=== PATIENT | female | born 1940 | race Caucasian/White ===

== ENCOUNTER 2017-09-29 16:10 | Observation (INO) ==
[2017-09-29] MEDS ORDERED: 0.9 % Sodium Chloride 1,000 ML IVC ONE (17:28)
[2017-09-29] MEDS ORDERED: Piperacillin/Tazobactam 3.375 GM in 0.9 % Sodium Chloride Mini Bag 100 ML IVPB ONE (17:38)
[2017-09-29] MEDS ORDERED: Piperacillin/Tazobactam 3.375 GM in Water for inj. (sterile) 20 ML 20 ML IVP ONE (17:45)
--- NOTE | 2017-09-29 17:47 | Emergency Department Note ---
Disposition Clinical Impression: Diverticulitis, RIGO (acute kidney injury), Elevated troponin Sepsis Qualifiers: Sepsis type: sepsis due to unspecified organism Qualified Code(s): A41.9 - Sepsis, unspecified organism Disposition: Admitted As Inpatient Condition: Fair Time of Disposition: 21:16 General Adult HPI - General Chief complaint: ED Weakness Stated complaint: "my legs wont hold me up" Time Seen by Provider: 09/29/17 17:06 Source: patient Mode of arrival: ambulatory Limitations: no limitations Nursing Notes Reviewed: Yes Vital Signs Reviewed: Yes - History of Present Illness HPI Narrative: 77-year-old female with a history of COPD, on nocturnal oxygen 2 L, pacemaker, recent pneumonia treated with Levaquin presents for evaluation of generalized weakness. Patient states she has been generally weak is worse in the past 24 hours. States that she feels that her legs are weaker than her arms. The patient also notes fevers and a nonproductive cough. Patient denies any specific shortness of breath or chest pain. Patient does report some abdominal discomfort with intermittent diarrhea. Patient denies any urinary complaints. Patient states that she was evaluated for possible liver cancer at [facility] and is not undergoing any therapy. Patient states that she recently just completed her Levaquin. Patient also states that her daughter was diagnosed with the flu. Pain Scale: 5 - Related Data Home Medications Medication Instructions Recorded Confirmed Diltiazem HCl [Diltiazem ER] 120 mg PO DAILY 07/10/16 09/29/17 Polyethylene Glycol 3350 [MiraLAX] 17 gm PO DAILY PRN 07/10/16 09/29/17 Tolterodine Tartrate [Detrol] 1 mg PO DAILY PRN 07/10/16 09/29/17 Albuterol Sulfate [Proair Hfa] 2 puff IH Q4H PRN 09/29/17 09/29/17 Cyanocobalamin (B-12) [Vitamin B12] 1,000 mcg IM QWEEK 09/29/17 09/29/17 Omeprazole [PriLOSEC] 40 mg PO DAILY 09/29/17 09/29/17 Oxygen 2 l NS AD 09/29/17 09/29/17 predniSONE [PredniSONE] 40 mg PO DAILY 09/29/17 09/29/17 Allergies Allergy/AdvReac Type Severity Reaction Status Date / Time budesonide [From Symbicort] Allergy Shakiness Verified 09/29/17 16:49 Formoterol [From Symbicort] Allergy Shakiness Verified 09/29/17 16:49 simvastatin Allergy Cramping Verified 09/29/17 16:49 of the Muscles sulfamethoxazole Allergy Nausea Verified 09/29/17 16:49 [From Bactrim] trimethoprim [From Bactrim] Allergy Nausea Verified 09/29/17 16:49 All systems ED: reviewed and negative except as stated. Constitutional: Denies: fever Cardiovascular: Denies: chest pain Respiratory: Reports: cough. Denies: dyspnea Gastrointestinal: Reports: abdominal pain, diarrhea. Denies: nausea, vomiting Past Medical History - Past Medical History Source: patient Medical history: Reports: COPD, GERD, hyperlipidemia, other Surgical history: Reports: cholecystectomy, pacemaker Psychiatric history: Reports: no psych history - Social History Smoking Status: Former smoker Smokeless Tobacco Status: No Alcohol use: Reports: none Drug use: Reports: none Physical Exam - General Limitations: no limitations General appearance: alert, in no apparent distress, lethargic - Head Head exam: atraumatic, normocephalic, normal inspection - Eye Eye exam: Present: normal appearance, PERRL, EOMI - ENT ENT exam: normal exam, normal oropharynx, mucous membranes moist - Neck Neck exam: Present: normal inspection - Chest Chest inspection: Present: normal inspection, symmetric chest wall rise - Respiratory Respiratory exam: Present: accessory muscle use, other (Diminished right lower lungs). Absent: respiratory distress - Cardiovascular Cardiovascular exam: Present: normal rhythm, tachycardia. Absent: systolic murmur - Abdominal Exam Abdominal exam: Present: soft, Non-Tender. Absent: distention, guarding, rebound - Extremities Exam Extremities exam: Present: normal inspection. Absent: pedal edema - Expanded Lower Extremity Exam Neurovascular/Tendon exam: Present: normal capillary refill - Back Exam Back exam: Present: normal inspection - Neurological Exam Neurological exam: Present: alert, oriented X3, CN II-XII intact - Expanded Neurological Exam Patient oriented to: Present: person Speech: Present: fluid speech Cranial nerves: EOM function (II, III, IV, ): Normal, facial sensation (V): Normal, gag reflex (IX): Normal, spinal accessory function (XI): Normal, tongue deviation (XII): Normal Motor strength - LUE: 5/5 Motor strength - RUE: 5/5 Motor strength - LLE: 4/5 Motor strength - RLE: 4/5 Coma Scale Eye Opening: Spontaneous Coma Scale Motor Response: Obeys Commands Coma Scale Verbal Response: Oriented Coma Scale Total: 15 - Skin Skin exam: Present: warm, dry, intact, normal color Course Course Narrative: Patient seen and examined. Patient will get basic labs, treating for sources of infection. Patient will also get CT of the head and CT of the abdomen and pelvis. Chest x-ray. Concerns for possible respiratory etiology. Patient also get screening for influenza. IV fluid hydration. Disposition likely admission. - Reevaluation(s) Reevaluation #1: Patient's imaging studies reviewed shows she has acute uncomplicated rectosigmoid diverticulitis. Patient has been complaining of diarrhea symptoms. Will add fungal coverage to the patient's antibiotic regimen that was initiated early on. Time: 19:41 Vital Signs Temperature 101.0 F H 09/29/17 16:44 Pulse Rate 105 09/29/17 16:44 Respiratory Rate 24 09/29/17 16:44 Blood Pressure 90/60 09/29/17 16:44 O2 Sat by Pulse Oximetry 99 09/29/17 16:44 Temperature 98.4 F 09/29/17 23:18 Pulse Rate 62 09/29/17 21:40 Respiratory Rate 16 09/29/17 23:18 Blood Pressure 95/50 09/29/17 23:18 O2 Sat by Pulse Oximetry 99 09/29/17 21:40 Oxygen Delivery Oxygen Delivery Room Air Medical Decision Making - [facility] Narrative Medical decision making narrative: Patient presented with sirs criteria with tachycardia as well as borderline blood pressure with fever. Patient had a recent course of antibiotics and diagnosed with pneumonia. During the course the patient's evaluation she was screened for the source of infection. Patient negative flu swab. Chest x-ray did not show any significant focal infiltrate R the patient was covered initially with broad-spectrum antibiotics given the patient's initial presentation. Patient's also been complaining of abdominal pain and has been chronic over the past month with associated diarrhea. Patient was found to have acute uncomplicated sigmoid diverticulitis. Patient was requiring IV fluid resuscitation responded to fluids. Does have 2 peripheral IVs. Patient also developed an elevated troponin with no acute EKG changes. Patient is denying any chest pain. Patient was given an aspirin. Patient also developed acute kidney injury likely secondary to prerenal and volume status. Patient's family was updated on plan of care. Patient be admitted for sepsis secondary to diverticulitis. - Lab Data Lab results reviewed: Yes I reviewed the patient's lab results. Result diagrams: 09/29/17 17:46 09/29/17 17:28 Lab Results 09/29/17 09/29/17 09/29/17 Range/Units 17:28 17:46 17:46 WBC 6.4 (4.3-11.1) K/mcL RBC 4.79 (3.82-4.97) M/mcL Hgb 14.5 (11.5-15.4) g/dL Hct 43.7 (35.3-44.9) % MCV 91.2 (83.0-100.0) fL MCH 30.3 (28.0-33.3) pg MCHC 33.2 (31.6-35.5) g/dL RDW 13.5 (11.5-14.5) % Plt Count 99 L (140-400) K/mcL MPV 9.3 L (9.4-12.4) fL Immature Gran % 0.9 (0-4) % Seg Neutrophils % 72.0 % Lymphocytes % 21.5 % Monocytes % 5.1 % Eosinophils % 0.3 % Basophils % 0.2 % Neutrophils # 4.6 (1.6-8.9) K/mcL Lymphocytes # 1.4 (0.6-4.6) K/mcL Monocytes # 0.3 (0.0-1.3) K/mcL Eosinophils # 0.0 (0.0-0.6) K/mcL Basophils # 0.0 (0.0-0.2) K/mcL Immature Plt Fraction 1.7 (1.1-6.1) % VBG pH (7.32-7.42) pH Units VBG pCO2 (41-51) mmHg VBG pO2 (25-50) mmHg VBG HCO3 (21-27) mEq/L Sodium 137 (136-145) mEq/L Potassium 3.7 (3.5-5.1) mEq/L Chloride 101 (98-107) mEq/L Carbon Dioxide 27 (23-29) mEq/L BUN 30 H (8-23) mg/dL Creatinine 1.21 H (0.60-1.20) mg/dL Est GFR ( Amer) 52 L (> 60) Est GFR (Non-Af Amer) 43 L (> 60) BUN/Creatinine Ratio 25 (6-26) Glucose 83 (70-105) mg/dL Calculated Osmolality 289 (280-300) Lactic Acid 1.3 (0.5-2.2) mmol/L Calcium 9.5 (8.6-10.3) mg/dL Total Bilirubin 1.0 (0.3-1.0) mg/dL AST 17 (13-39) Units/L ALT 16 (7-52) Units/L Alkaline Phosphatase 45 (34-104) Units/L Troponin I 0.07 H* (< 0.04) ng/mL B-Natriuretic Peptide (Less than 100) pg/mL Serum Total Protein 6.0 L (6.4-8.9) g/dL Albumin 3.5 (3.5-5.7) g/dL Globulin 2.5 (2.4-3.5) g/dL Albumin/Globulin Ratio 1.4 (1.1-2.2) Urine Color (Yellow) Urine Clarity (Clear) Urine pH (5.0-8.0) pH Units Ur Specific Sc[place]ey (1.010-1.025) Urine Protein (Neg-Trace) mg/dL Urine Glucose (UA) (Normal) mg/dL Urine Ketones (Negative) mg/dL Urine Blood (Negative) Urine Nitrite (Negative) Urine Bilirubin (Negative) Urine Urobilinogen (Normal) mg/dL Ur Leukocyte Esterase (Negative) Ur Culture Indicated? (NO) 09/29/17 09/29/17 09/29/17 Range/Units 17:46 18:11 20:17 WBC (4.3-11.1) K/mcL RBC (3.82-4.97) M/mcL Hgb (11.5-15.4) g/dL Hct (35.3-44.9) % MCV (83.0-100.0) fL MCH (28.0-33.3) pg MCHC (31.6-35.5) g/dL RDW (11.5-14.5) % Plt Count (140-400) K/mcL MPV (9.4-12.4) fL Immature Gran % (0-4) % Seg Neutrophils % % Lymphocytes % % Monocytes % % Eosinophils % % Basophils % % Neutrophils # (1.6-8.9) K/mcL Lymphocytes # (0.6-4.6) K/mcL Monocytes # (0.0-1.3) K/mcL Eosinophils # (0.0-0.6) K/mcL Basophils # (0.0-0.2) K/mcL Immature Plt Fraction (1.1-6.1) % VBG pH 7.47 H (7.32-7.42) pH Units VBG pCO2 39 L (41-51) mmHg VBG pO2 71 H (25-50) mmHg VBG HCO3 28 H (21-27) mEq/L Sodium (136-145) mEq/L Potassium (3.5-5.1) mEq/L Chloride (98-107) mEq/L Carbon Dioxide (23-29) mEq/L BUN (8-23) mg/dL Creatinine (0.60-1.20) mg/dL Est GFR ( Amer) (> 60) Est GFR (Non-Af Amer) (> 60) BUN/Creatinine Ratio (6-26) Glucose (70-105) mg/dL Calculated Osmolality (280-300) Lactic Acid (0.5-2.2) mmol/L Calcium (8.6-10.3) mg/dL Total Bilirubin (0.3-1.0) mg/dL AST (13-39) Units/L ALT (7-52) Units/L Alkaline Phosphatase (34-104) Units/L Troponin I (< 0.04) ng/mL B-Natriuretic Peptide 88 (Less than 100) pg/mL Serum Total Protein (6.4-8.9) g/dL Albumin (3.5-5.7) g/dL Globulin (2.4-3.5) g/dL Albumin/Globulin Ratio (1.1-2.2) Urine Color Dark Yellow (Yellow) Urine Clarity Clear (Clear) Urine pH 5.0 (5.0-8.0) pH Units Ur Specific Sc[place]ey 1.029 H (1.010-1.025) Urine Protein Negative (Neg-Trace) mg/dL Urine Glucose (UA) Normal (Normal) mg/dL Urine Ketones Negative (Negative) mg/dL Urine Blood Negative (Negative) Urine Nitrite Negative (Negative) Urine Bilirubin Negative (Negative) Urine Urobilinogen Normal (Normal) mg/dL Ur Leukocyte Esterase Negative (Negative) Ur Culture Indicated? NO (NO) - Radiology Data Radiology results reviewed: Yes I reviewed the patient's radiology results. Chest X-Ray 09/29/17 17:28 IMPRESSION: No acute process. D/ / Jean Paul Thomas MD / Jean Paul Thomas MD Interpreting Provider: Jean Paul Thomas MD Head CT 09/29/17 17:29 IMPRESSION: No acute intracranial abnormality. D/ / Mikal Thomas MD / Mikal Thomas MD Interpreting Provider: Mikal Thomas MD Abdomen/Pelvis CT 09/29/17 17:30 IMPRESSION: 1. Acute uncomplicated diverticulitis involving the rectosigmoid junction. 2. Continued evidence of low-density lesions within the hepatic parenchyma, unchanged when compared to the previous exam, and compatible with a benign hemangioma along with multiple small cysts. D/ / Tez Saini MD / Tez Saini MD Interpreting Provider: Tez Saini MD - EKG Data EKG #1 EKG attestation: Yes I reviewed and interpreted this EKG. EKG results narrative: Electronic atrial ventricular pacemaker at a rate of 60. No signs Sgarbossa criteria. Left axis deviation. QTC of 396. Critical Care Time Critical Care Time: Yes Total Critical Care Time: 35 Attestation: The high probability of a clinically significant, sudden or life threatening deterioration of the [resp/GI] system(s) required my full and direct attention, intervention and personal management. The aggregate critical care time was [35] minutes. This time is in addition to time spent performing reported procedures but includes the following: [x] Data Review and interpretation [x] Patient assessment and monitoring of vital signs [x] Documentation [x] Medication orders and management Sultana - Sultana Situation: Demographics Background: Presenting Complaint Assessment: Vital Signs, Course and respsone to treatment, Patient/Family Expectation Recommendation: Barrier(s) to disposition, Recommendation based on pending studies, treatments, or consults Sultana Report Given to: Dr. Dontae Weinberg Repor Time: 22:30 Attestation Statement - Attestation Attestation: I examined this patient and my medical decision-making was reviewed with the Resident Physician, Dr. Galindo. I agree with the documented findings, disposition and treatment plan as described except to the extent set forth below. Patient is a 77-year-old white female with history of COPD on 2 L nasal oxygen at home in the evenings, who is brought to the emergency department by her out of concern for gradually worsening generalized weakness. He should recently was treated for pneumonia with Levaquin, has finished her antibiotics as directed but states that she began having a fever and chills, generalized weakness and she does have some ongoing nasal congestion and cough but nonproductive. Patient also mentions that towards the end of her antibiotic course which she reports was Levaquin, she developed some generalized lower abdominal cramping and diarrhea. Patient denies any blood per rectum, no other antibiotic use or prescription. Patient arrived febrile, tachycardic and hypotensive. Patient met SIRS criteria on arrival and septic workup was initiated. I agree with patient's physical exam findings as documented. Patient's EKG shows a paced rhythm. Chest x-ray is unremarkable. Flu swab is negative. Labs show mild AK I likely due to dehydration. Patient has received 2 L of fluids wide open and will be switched to a maintenance IV. Patient's CT head was unremarkable and no focal neurologic changes while in the ED. CT abdomen and pelvis showed acute on-call acute sigmoid diverticulitis. IV antibiotics were initiated, lactate is within normal limits. Patient will be admitted for further evaluation and management.
[2017-09-29 18:03] LABS: Eosinophils % 0.3 %; Hemoglobin 14.5 g/dL (11.5-15.4); Immature Granulocytes % 0.9 % (0-4)
[2017-09-29 18:05] LABS: Basophils % 0.2 %; Hematocrit 43.7 % (35.3-44.9); Immature Platelets 1.7 % (1.1-6.1); Lymphocytes # 1.4 K/mcL (0.6-4.6); Lymphocytes % 21.5 %; Mean Corpuscular HGB Conc 33.2 g/dL (31.6-35.5); Mean Corpuscular Hemoglobin 30.3 pg (28.0-33.3); Mean Corpuscular Volume 91.2 fL (83.0-100.0); Mean Platelet Volume 9.3 fL (9.4-12.4); Monocytes # 0.3 K/mcL (0.0-1.3); Monocytes % 5.1 %; Neutrophils # 4.6 K/mcL (1.6-8.9); Red Blood Count 4.79 M/mcL (3.82-4.97); Red Cell Distribution Width 13.5 % (11.5-14.5)
[2017-09-29 18:07] LABS: Platelet Count 99 K/mcL (140-400)
[2017-09-29 18:13] LABS: VBG HCO3 28 mEq/L (21-27); VBG PCO2 39 mmHg (41-51); VBG PH 7.47 pH Units (7.32-7.42); VBG PO2 71 mmHg (25-50)
[2017-09-29 18:29] LABS: Albumin 3.5 g/dL (3.5-5.7); Albumin/Globulin Ratio 1.4 (1.1-2.2); Calcium 9.5 mg/dL (8.6-10.3); Globulin 2.5 g/dL (2.4-3.5); Potassium 3.7 mEq/L (3.5-5.1)
[2017-09-29 18:31] LABS: Troponin I 0.07 ng/mL (< 0.04)
[2017-09-29] MEDS ORDERED: MetroNIDAZOLE 500 MG/100 ML 500 MG/100 ML BAG IVPB ONE (19:40)
[2017-09-29] MEDS ORDERED: 0.9 % Sodium Chloride 1,000 ML ONE (20:13)
[2017-09-29 20:37] LABS: Bilirubin,Urine Negative (Negative); Blood,Urine Negative (Negative); Clarity,Urine Clear (Clear); Color,Urine Dark Yellow (Yellow); Glucose,Urine (UA) Normal (Normal); Ketones,Urine Negative (Negative); Leukocyte Esterase,Urine Negative (Negative); Nitrite,Urine Negative (Negative); Protein,Urine Negative (Neg-Trace); Specific Gravity,Urine 1.029 (1.010-1.025); Urobilinogen,Urine Normal (Normal)
[2017-09-29] MEDS ORDERED: Aspirin 81 MG TAB.CHEW PO ONE (21:05)
[2017-09-29] MEDS ORDERED: D5% in 0.45% NACL 1,000 ML IVC SCH (21:15)
--- NOTE | 2017-09-30 00:40 | Internal Med History&Physical ---
Date of Encounter: 09/29/17 Time of Encounter: 23:15 Assessment and Plan (1) Sepsis Current visit: Yes Status: Acute Patient presenting with signs of sepsis due to acute diverticulitis. Will treat underlying condition with IV antibiotics. Gentle hydration. Monitor vital signs. Lactic acid normal. Qualifiers: Sepsis type: sepsis due to unspecified organism Qualified Code(s): A41.9 - Sepsis, unspecified organism (2) Diverticulitis Current visit: Yes Status: Acute Acute rectosigmoid diverticulitis without complications. Will keep nothing by mouth. Treat with IV antibiotics. IV hydration. Monitor vital signs closely. Moderate risk for complications (3) Chronic kidney disease, stage III (moderate) Current visit: Yes Status: Chronic Patient appears to have chronic kidney disease and her creatinine is at baseline. We will avoid any nephrotoxic agents. 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 Platelets 99. Patient reports her platelets had been in the low 30s previously. Continue prednisone. Avoid heparin products. (5) Elevated troponin Current visit: Yes Status: Acute Initial troponin at 0.07. No chest pain. Will trend troponins. We will get 2- D echocardiogram. Could be related to demand ischemia with underlying sepsis and diverticulitis. (6) COPD (chronic obstructive pulmonary disease) Current visit: Yes Status: Chronic Not in acute exacerbation at this time. We will use bronchodilators as needed. Qualifiers: COPD type: chronic bronchitis Chronic bronchitis type: simple Qualified Code(s): J41.0 - Simple chronic bronchitis Internal Medicine - H&P: HPI Chief complaint: Generalized weakness, malaise and abdominal pain Admitted From: Emergency Dept Plans for Post Hospital Care: Home History of present illness: Ms. Courtney is a 77 year old female patient with past history of mild COPD, GERD who has been feeling weak and sick over the past few months presented to the ER today with complaints of generalized weakness which has been progressively worsening along with abdominal pain. She also sustained a fall this morning. She has been hospitalized at [facility] recently for about of pneumonia and urinary tract infection for which she was given antibiotics with improvement in those symptoms. She also reports diarrhea recently. No nausea or vomiting. No chest pain. No palpitations. 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 She did have fever with temperature of 101 on arrival here. She also reports blood in her stools over the past 2-3 days. She was found to have abnormal lesions in the liver which were suspected of being cancerous but workup had been negative. She did not undergo any biopsy. Past Med Surg Social Fam HX - Past Medical History Attestation: Yes The following information was validated with the patient. Source: patient Medical history: COPD, GERD, hyperlipidemia, other Psychiatric history: no psych history - Past Surgical History Surgical History: cholecystectomy, pacemaker - Social History Smoking Status: Former smoker Smokeless Tobacco Status: No Alcohol use: none Drug use: none - Family History Mother Hx Family Cardiac Disorders: Yes Internal Medicine - H&P: Meds Diltiazem HCl [Diltiazem ER] 120 mg PO DAILY 07/10/16 [History] Polyethylene Glycol 3350 [MiraLAX] 17 gm PO DAILY PRN 07/10/16 [History] Tolterodine Tartrate [Detrol] 1 mg PO DAILY PRN 07/10/16 [History] Albuterol Sulfate [Proair Hfa] 2 puff IH Q4H PRN 09/29/17 [History] Cyanocobalamin (B-12) [Vitamin B12] 1,000 mcg IM QWEEK 09/29/17 [History] Omeprazole [PriLOSEC] 40 mg PO DAILY 09/29/17 [History] Oxygen 2 l NS AD 09/29/17 [History] predniSONE [PredniSONE] 40 mg PO DAILY 09/29/17 [History] 3 Allergy/AdvReac Type Severity Reaction Status Date / Time budesonide [From Symbicort] Allergy Shakiness Verified 09/29/17 16:49 Formoterol [From Symbicort] Allergy Shakiness Verified 09/29/17 16:49 simvastatin Allergy Cramping Verified 09/29/17 16:49 of the Muscles sulfamethoxazole Allergy Nausea Verified 09/29/17 16:49 [From Bactrim] trimethoprim [From Bactrim] Allergy Nausea Verified 09/29/17 16:49 All Systems PM: A 10-system review of systems was performed and is negative for pertinent findings except as documented above in the HPI. - Constitutional Constitutional: fever(s), malaise, no chills, no night sweats - EENT Eyes: no change in vision, no discharge, no pain, no photophobia Ears: no ear discharge, no ear pain, no tinnitus Nose, mouth and throat: no dysphagia, no nasal discharge, no neck pain, no sore throat - Cardiovascular Cardiovascular ROS IM: no chest pain, no diaphoresis, no dyspnea, no lightheadedness, no palpitations, no syncope - Respiratory Respiratory: no cough, no dyspnea, no wheezing, no excessive phlegm production - Gastrointestinal Gastrointestinal: abdominal pain, no diarrhea, no hematemesis, no hematochezia, no melena, no nausea, no vomiting - Genitourinary Genitourinary: no change in urinary stream, no dysuria, no flank pain, no hematuria - Musculoskeletal Musculoskeletal ROS IM: no numbness, no tingling - Integumentary Integumentary IM: no rash, no unusual bruising - Neurological Neurological ROS: no confusion, no convulsions, no focal weakness, no numbness, no tingling, no tremor(s) - Hematologic/Lymphatic Hematologic/Lymphatic: no easy bruising - Constitutional Vitals: Temp Pulse Resp BP Pulse Ox 98.4 F 62 16 95/50 99 09/29/17 23:18 09/29/17 21:40 09/29/17 23:18 09/29/17 23:18 09/29/17 21:40 General appearance: Present: cooperative, mild distress, A&O X 3, pleasant, answers questions appropriately - Neck Neck exam general surgery: Present: supple, trachea midline. Absent: lymphadenopathy - Respiratory Respiratory exam: Present: CTAB. Absent: accessory muscle use, rales, rhonchi, wheezes - Cardiovascular Cardiovascular exam: Present: RRR, +S1, +S2. Absent: diastolic murmur, gallop, rubs, systolic murmur - GI/Abdominal GI/Abdominal exam: Present: normal bowel sounds, soft, tenderness (Lower midabdomen), no peritoneal signs. Absent: distended - Extremities Exam Extremities exam: Present: warm, radial pulses palpable and symmetrical. Absent : calf tenderness, cyanotic, pedal edema - Neurological Exam Neurological exam: Present: CN II-XII intact, oriented X3, no focal deficits. Absent: facial droop, speech deficit - Skin Skin exam: Present: dry, intact Internal Med - H&P Results - Labs CBC & Chem 7: 09/29/17 17:46 09/29/17 17:28 - Impressions Impressions Chest X-Ray 09/29/17 17:28 IMPRESSION: No acute process. D/ / Jean Paul Thomas MD / Jean Paul Thomas MD Interpreting Provider: Jean Paul Thomas MD Head CT 09/29/17 17:29 IMPRESSION: No acute intracranial abnormality. D/ / Mikal Thomas MD / Mikal Thomas MD Interpreting Provider: Mikal Thomas MD Abdomen/Pelvis CT 09/29/17 17:30 IMPRESSION: 1. Acute uncomplicated diverticulitis involving the rectosigmoid junction. 2. Continued evidence of low-density lesions within the hepatic parenchyma, unchanged when compared to the previous exam, and compatible with a benign hemangioma along with multiple small cysts. D/ / Tez Saini MD / Tez Saini MD Interpreting Provider: Tez Saini MD
[2017-09-30] MEDS ORDERED: OXYCODONE Oral CONC 10 MG/0.5 ML ORAL.SYG SL PRN ×2 (00:48)
[2017-09-30] MEDS ORDERED: Acetaminophen 325 MG TABLET PO PRN (00:48)
[2017-09-30] MEDS ORDERED: *HR* Promethazine 25 MG/ML VIAL IVP PRN (00:48)
[2017-09-30] MEDS ORDERED: Naloxone 0.4 MG/ML INJ IVP PRN ×2 (00:48)
[2017-09-30] MEDS ORDERED: D5% in Lactated Ringers 1,000 ML IVC SCH (01:00)
[2017-09-30] MEDS ORDERED: NON-FORMULARY MEDICATION 1 EACH EACH (Oxygen [Oxygen] 2 L) NS SCH (01:00)
[2017-09-30] MEDS ORDERED: Cyanocobalamin (B-12) 1,000 MCG/ML VIAL IM SCH (01:00)
[2017-09-30 01:37] LABS: Eosinophils % 0.5 %; Red Cell Distribution Width 13.5 % (11.5-14.5)
[2017-09-30 01:46] LABS: Hematocrit 33.7 % (35.3-44.9); Lymphocytes % 21.1 %; Mean Corpuscular HGB Conc 32.6 g/dL (31.6-35.5); Mean Corpuscular Hemoglobin 30.3 pg (28.0-33.3); Mean Corpuscular Volume 92.8 fL (83.0-100.0); Mean Platelet Volume 9.5 fL (9.4-12.4); Monocytes # 0.2 K/mcL (0.0-1.3); Monocytes % 4.5 %; Neutrophils # 2.9 K/mcL (1.6-8.9); Red Blood Count 3.63 M/mcL (3.82-4.97); Segmented Neutrophils % 71.9 %
[2017-09-30 01:47] LABS: Lymphocytes # 0.8 K/mcL (0.6-4.6); Platelet Count 69 K/mcL (140-400)
[2017-09-30 01:54] LABS: BUN/Creatinine Ratio 23 (6-26); Blood Urea Nitrogen 23 mg/dL (8-23); Calcium 7.4 mg/dL (8.6-10.3); Carbon Dioxide 24 mEq/L (23-29); Chloride 114 mEq/L (98-107); Glucose 102 mg/dL (70-105); Osmolality,Calculated 298 (280-300); Potassium 3.7 mEq/L (3.5-5.1); Sodium 142 mEq/L (136-145); eGFR For African Americans > 60 (> 60); eGFR For Non-African Americans 54 (> 60)
[2017-09-30] MEDS: MetroNIDAZOLE 500 MG/100 ML 500 MG/100 ML BAG IVPB SCH ×3 (08:32→23:30)
[2017-09-30] MEDS ORDERED: predniSONE 20 MG TABLET PO SCH (09:00)
[2017-09-30] MEDS ORDERED: Diltiazem CD (24hr) 120 MG CAPSULE PO SCH (09:00)
[2017-09-30] MEDS ORDERED: 0.9 % Sodium Chloride 500 ML IVC ONE (11:32)
--- NOTE | 2017-09-30 13:42 | Internal Med Progress Note ---
Date of Encounter: 09/30/17 Time of Encounter: 09:30 - Assessment and plan (1) Sepsis Current Visit: Yes Status: Acute Assessment and plan: with tachycardia, fever and elevated WBC. Lactic acid normal. Secondary to acute diverticulitis. BP low, no tachycardia. Patient reports blood pressure runs in the 80s to 90s at times. Remains hemodynamically stable. Cont IV fluids, IV ATB. Qualifiers: Sepsis type: sepsis due to unspecified organism Qualified Code(s): A41.9 - Sepsis, unspecified organism (2) Diverticulitis Current Visit: Yes Status: Acute Assessment and plan: ABD CT with ccute rectosigmoid diverticulitis without complications. COnt IV ATBs, fluids. ABD improved on 09/30/17 exam. diet to clears. Monitor vital signs closely. Moderate risk for complications (3) Paroxysmal atrial fibrillation Current Visit: No Status: Acute Assessment and plan: per hx. rate controlled. Not on anticoagulation due to known thrombocytopenia. Holding home CCB with bradycardia (4) Thrombocytopenia Current Visit: Yes Status: Acute Assessment and plan: PLTs dropped to 69; details unclear but apparently was thought to have liver malignancy at one point time however patient tells me that was ruled out. Of note ABD CT on arrival shows persistent low-density lesion of hepatic parenchyma unchanged when compared to previous exam. Holding home prednisone. Start stress dose steroids. Peripheral blood smear pending. Monitor for bleeding, monitor repeat CBC. If PLTs cont to drop will consult Oncology (5) DVT prophylaxis Current Visit: Yes Status: Acute Assessment and plan: SCDs - Subjective Interval history: Seen and examined at bedside; patient is new to me. Information obtained from chart review and patient report. Overall says she feels better. Still has some abdominal pain. No loose stools within the past 24 hours. She is hungry and would like to try to eat if possible. No chest pain or shortness of breath. - Constitutional Vitals: Temp Pulse Resp BP Pulse Ox 98.1 F 77 16 81/49 97 09/30/17 11:27 09/30/17 11:27 09/30/17 11:27 09/30/17 11:27 09/30/17 11:27 General appearance: Present: cooperative, A&O X 3, pleasant, answers questions appropriately - Head Head exam: Present: atraumatic, normocephalic - Eye Eye exam: Present: PERRL, conjuntiva pink, sclera anicteric Pupils: Present: PERRL - Neck Neck exam general surgery: Present: supple, trachea midline. Absent: lymphadenopathy - Respiratory Respiratory exam: Present: CTAB. Absent: accessory muscle use, rales, rhonchi, wheezes - Cardiovascular Cardiovascular exam: Present: RRR, +S1, +S2. Absent: diastolic murmur, gallop, rubs, systolic murmur - GI/Abdominal GI/Abdominal exam: Present: normal bowel sounds, soft, no peritoneal signs. Absent: distended, tenderness - Extremities Exam Extremities exam: Present: warm, radial pulses palpable and symmetrical. Absent : calf tenderness, cyanotic, pedal edema - Neurological Exam Neurological exam: Present: CN II-XII intact, oriented X3, no focal deficits. Absent: pronater drift, facial droop, speech deficit - Skin Skin exam: Present: dry, intact Internal Medicine: Result - Labs CBC & Chem 7: 09/30/17 01:22 09/30/17 01:22 Labs: Short CBC 09/30/17 Range/Units 01:22 WBC 4.0 L (4.3-11.1) K/mcL Hgb 11.0 L D (11.5-15.4) g/dL Hct 33.7 L (35.3-44.9) % Plt Count 69 L (140-400) K/mcL Neutrophils # 2.9 (1.6-8.9) K/mcL BMP 09/30/17 01:22 Sodium 142 Potassium 3.7 Chloride 114 H Carbon Dioxide 24 BUN 23 Creatinine 0.99 Glucose 102 Calcium 7.4 L Cardiac Enzymes 09/30/17 Range/Units 08:25 Troponin I 0.05 H* (< 0.04) ng/mL Consult Discharge Plan - Plan Referrals: Eliseo England MD [Partnered Physician] - 10/06/17 1:30 pm Tram Garcia MD [Non-Partnered Physician] - 10/09/17 11:45 am
[2017-09-30] MEDS: Hydrocortisone Sodium Succ 100 MG/2 ML VIAL IVP SCH ×2 (15:32→23:28)
[2017-09-30] MEDS: Pantoprazole 40 MG VIAL IVP SCH (17:53)
--- NOTE | 2017-09-30 19:32 | Electrocardiograph Report ---
[address] [place] [address] Test Date: 2017-09-29 Pat Name: Avis Courtney Department: 103 Room: [facility] Gender: F Cdl Program Coordinator: [facility] : 1940 Requested By: Patrice Galindo Order Number: [id number] Reading MD: Stefano Parsons MD Measurements Intervals [place] Rate: 60 P: 119 AR: 208 QRS: -69 QRSD: 144 T: 44 QT: 394 QTc: 396 Interpretive Statements DEMAND AV PACING Electronically Signed On 09-30-2017 19:30:47 EST by Stefano Parsons MD
[2017-10-01] MEDS: Pantoprazole 40 MG VIAL IVP SCH (06:11)
[2017-10-01 06:16] LABS: Mean Corpuscular Hemoglobin 29.9 pg (28.0-33.3); Red Cell Distribution Width 12.9 % (11.5-14.5)
[2017-10-01 06:17] LABS: Hematocrit 32.5 % (35.3-44.9); Hemoglobin 10.5 g/dL (11.5-15.4); Immature Platelets 1.8 % (1.1-6.1); Mean Corpuscular HGB Conc 32.3 g/dL (31.6-35.5); Mean Corpuscular Volume 92.6 fL (83.0-100.0); Mean Platelet Volume 10.1 fL (9.4-12.4); Red Blood Count 3.51 M/mcL (3.82-4.97)
[2017-10-01 06:39] LABS: BUN/Creatinine Ratio 21 (6-26); Blood Urea Nitrogen 15 mg/dL (8-23); Calcium 7.7 mg/dL (8.6-10.3); Carbon Dioxide 22 mEq/L (23-29); Chloride 113 mEq/L (98-107); Glucose 134 mg/dL (70-105); Osmolality,Calculated 295 (280-300); Potassium 3.8 mEq/L (3.5-5.1); Sodium 141 mEq/L (136-145); eGFR For African Americans > 60 (> 60); eGFR For Non-African Americans > 60 (> 60)
[2017-10-01] MEDS ORDERED: metroNIDAZOLE 500 MG TABLET PO SCH (11:15)
[2017-10-01] MEDS ORDERED: predniSONE 20 MG TABLET PO SCH (11:15)
[2017-10-01] MEDS: MetroNIDAZOLE 500 MG/100 ML 500 MG/100 ML BAG IVPB SCH (11:56)
[2017-10-01] MEDS: Hydrocortisone Sodium Succ 100 MG/2 ML VIAL IVP SCH (11:56)
[2017-10-01] MEDS ORDERED: 0.9 % Sodium Chloride 500 ML IVC ONE (13:43)
--- NOTE | 2017-10-01 13:45 | Discharge Summary ---
Orders not resulted at time of discharge: Pending orders 09/30/17 15:11 Peripheral Bld [facility] Stat 10/02/17 04:00 BMP [Basic Metabolic Panel] AM 0400 Complete Blood Count w/o Diff [HEME] AM 0400 10/03/17 04:00 BMP [Basic Metabolic Panel] AM 0400 Complete Blood Count w/o Diff [HEME] AM 0400 10/04/17 04:00 BMP [Basic Metabolic Panel] AM 0400 Complete Blood Count w/o Diff [HEME] AM 0400 10/05/17 04:00 BMP [Basic Metabolic Panel] AM 0400 Complete Blood Count w/o Diff [HEME] AM 0400 Date of Encounter: 10/01/17 Time of Encounter: 13:45 - Discharge Diagnosis (1) Sepsis Priority: Primary Status: Acute Comments: presented with signs of sepsis due to acute diverticulitis. Febrile, tachycardic and elevated WBC. Lactic acid normal. Secondary to acute diverticulitis. With IV fluids, IV ATB. Sepsis resolved at time of discharge. Qualifiers: Sepsis type: sepsis due to unspecified organism Qualified Code(s): A41.9 - Sepsis, unspecified organism (2) Diverticulitis Priority: Primary Status: Acute Comments: presented with ABD pain and loose stool. ABD CT with acute rectosigmoid diverticulitis without complications. No loose stool while inpatient. Sx's improved with IV Cipro and Flagyl. Tolerating regular diet with no abdominal pain at time of discharge. Continue Cipro/Flagyl for one week. Follow-up with PCP. (3) Paroxysmal atrial fibrillation Priority: Primary Status: Acute Comments: per hx. Rate controlled with HRs in the 60s. Continue home diltiazem. No anticoagulation presumably due to thrombocytopenia. Recommend follow-up with outpatient community health advisor. 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 Platelets 99 on arrival and dropped to 70. He was previously 30 per patient. Treated with stress dose IV steroids. Home prednisone resumed at discharge. Recommend follow-up with PCP within 1 week. (5) Elevated troponin Priority: Primary Status: Acute Comments: troponin elevated at 0.07 and normalized. EKG without acute ST changes. Denied chest pain. Suspect secondary to demand ischemia secondary to sepsis. Patient declined inpatient cardiac workup including stress test and/or cardiology consultation. Preferred to follow up outpatient with her primary community health advisor (6) Chronic kidney disease, stage III (moderate) Priority: Secondary Status: Chronic Comments: per hx. Renal function at baseline. (7) Anemia Priority: Primary Status: Acute Comments: Hgb 14 and dropped to 10.5. No active bleeding. Occult stool ordered but patient did not have BM while inpatient. Possible dilutional component with aggressive IV fluids. Recommend follow-up with PCP within 1 week for repeat CBC. Qualifiers: Chronic kidney disease stage: stage 2 (mild) Qualified Code(s): N18.2 - Chronic kidney disease, stage 2 (mild); D63.1 - Anemia in chronic kidney disease ; D63.1 - Anemia in chronic kidney disease (8) Hypotension Priority: Primary Status: Acute Comments: BP main soft/borderline while inpatient even after sepsis resolved. Patient states BP runs on the low side. No tachycardia once sepsis resolved. Suspect this is patient's baseline. Advised to follow-up with PCP within 1 week. Qualifiers: Hypotension type: unspecified hypotension type Qualified Code(s): I95.9 - Hypotension, unspecified Hospital course: Ms. Courtney is a 77 year old female with PMH see Jayy SANCHEZ cytopenia COPD and Cesilia rios who presented to [facility] on 09/29/2017 with complaints of abdominal pain and loose stool. She was found to be in sepsis secondary to acute diverticulitis. Her symptoms significantly improved with IV fluids and IV ATB. Seen and examined at bedside on 10/01/17; patient states she feels significantly improved and back to baseline. Says she has not felt this well the past 3 weeks. Tolerating regular diet. No loose stool. No abdominal pain. She was discharged home on in stable condition with outpatient follow-up. Discharge discussed with: patient, family - Time Spent with Patient Total time spent providing and/or coordinating discharge services: - Discharge Medications Prescriptions: Ciprofloxacin [Cipro] 500 mg PO BID #14 tablet Diltiazem SR (12hr) [Cardizem SR] 60 mg PO Q12H #60 cap.er.12h metroNIDAZOLE [Flagyl] 500 mg PO TID #21 tablet Home Medications: Polyethylene Glycol 3350 [MiraLAX] 17 gm PO DAILY PRN 07/10/16 [History] Tolterodine Tartrate [Detrol] 1 mg PO DAILY PRN 07/10/16 [History] Albuterol Sulfate [Proair Hfa] 2 puff IH Q4H PRN 09/29/17 [History] Cyanocobalamin (B-12) [Vitamin B12] 1,000 mcg IM QWEEK 09/29/17 [History] Omeprazole [PriLOSEC] 40 mg PO DAILY 09/29/17 [History] Oxygen 2 l NS AD 09/29/17 [History] predniSONE [PredniSONE] 40 mg PO DAILY 09/29/17 [History] Ciprofloxacin [Cipro] 500 mg PO BID #14 tablet 10/01/17 [Rx] Diltiazem SR (12hr) [Cardizem SR] 60 mg PO Q12H #60 cap.er.12h 10/01/17 [Rx] metroNIDAZOLE [Flagyl] 500 mg PO TID #21 tablet 10/01/17 [Rx] Allergies/Adverse Reactions: 3 Allergy/AdvReac Type Severity Reaction Status Date / Time budesonide [From Symbicort] Allergy Shakiness Verified 09/29/17 16:49 Formoterol [From Symbicort] Allergy Shakiness Verified 09/29/17 16:49 simvastatin Allergy Cramping Verified 09/29/17 16:49 of the Muscles sulfamethoxazole Allergy Nausea Verified 09/29/17 16:49 [From Bactrim] trimethoprim [From Bactrim] Allergy Nausea Verified 09/29/17 16:49 Date of admission: 09/29/17 23:02 Primary care physician: PCP NONE Discharging clinician: Kenia Stevenson Anticipated date of discharge: 10/01/17 - Constitutional Vitals: Temp Pulse Resp BP Pulse Ox 97.9 F 61 18 89/55 98 10/01/17 11:28 10/01/17 11:28 10/01/17 11:28 10/01/17 11:28 10/01/17 11:28 General appearance: Present: cooperative, A&O X 3, pleasant, answers questions appropriately - Head Head exam: Present: atraumatic, normocephalic - Eye Eye exam: Present: PERRL, conjuntiva pink, sclera anicteric Pupils: Present: PERRL - Neck Neck exam general surgery: Present: supple, trachea midline. Absent: lymphadenopathy - Respiratory Respiratory exam: Present: CTAB. Absent: accessory muscle use, rales, rhonchi, wheezes - Cardiovascular Cardiovascular exam: Present: RRR, +S1, +S2. Absent: diastolic murmur, gallop, rubs, systolic murmur - GI/Abdominal GI/Abdominal exam: Present: normal bowel sounds, soft, no peritoneal signs. Absent: distended, tenderness - Extremities Exam Extremities exam: Present: warm, radial pulses palpable and symmetrical. Absent : calf tenderness, cyanotic, pedal edema - Neurological Exam Neurological exam: Present: CN II-XII intact, oriented X3, no focal deficits. Absent: pronater drift, facial droop, speech deficit - Skin Skin exam: Present: dry, intact - Patient Status Disposition: Home, Self-Care Condition: Good Functional capacity at discharge: independent ambulation Overall status at discharge: patient is back to baseline - Discharge Instructions Instructions: Ciprofloxacin (By mouth), Metronidazole (By mouth), Diverticulitis (DC) Follow Up With: Eliseo England MD [Partnered Physician] - 10/06/17 1:30 pm Tram Garcia MD [Non-Partnered Physician] - 10/09/17 11:45 am - Diet and Activity Activity: increase activity as tolerated Diet: advance to your usual diet
[2017-10-01 13:56] VITALS: BP 101/56
== END 2017-10-01 15:40 | disposition home or self-care (01) ==
LOC: 3BNU 16:10 → EMEROO 16:10 → 3BNU 23:26
PROVIDERS: ADMIT Internal Medicine; ATTEND Registered Nurse

== ENCOUNTER 2017-11-11 15:14 | Observation (INO) ==
[2017-11-11] MEDS ORDERED: 0.9 % Sodium Chloride 500 ML IVC ONE (15:43)
[2017-11-11] MEDS ORDERED: Isovue-370 500 ML INFUS..BTL IV ONE (15:45)
--- NOTE | 2017-11-11 15:48 | Emergency Department Note ---
Disposition Clinical Impression: Thrombocytopenia, Diverticulitis Hypotension Qualifiers: Hypotension type: unspecified hypotension type Qualified Code(s): I95.9 - Hypotension, unspecified Abdominal pain Qualifiers: Abdominal location: unspecified location Qualified Code(s): R10.9 - Unspecified abdominal pain Disposition: Admitted As Inpatient General Adult HPI - General Chief complaint: ED Dizziness Stated complaint: "hypotension" Time Seen by Provider: 11/11/17 15:31 Source: patient, family (daughter, RN) Limitations: no limitations Nursing Notes Reviewed: Yes Vital Signs Reviewed: Yes - History of Present Illness HPI Narrative: 77-year-old female presents emergency department for hypotension. Patient presents with her family who also assist with history. Patient is blood pressures typically systolic 90s. Today therapy came to her house in her blood pressure was checked and was found to be low in the systolic 70s. Over the past several days patient's been complaining of some lightheadedness and shortness of breath. She denies any recent illness, chest pain, cough or congestion. She reports recently seeing her certified legal secretary specialist Dr. King regarding possible heart catheterization for a prior heart attack within the past several weeks. Currently it is on hold as she has been experiencing some G.I. 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 Patient received platelet transfusion. Patient has a pacemaker. She continues to have pencil thin stools. She is currently on steroids for that. She has multiple doctors throughout [place] following these conditions. She was also recently diagnosed with diverticulitis and continues to have abdominal pain despite finishing a course of Cipro and Flagyl. On arrival here patient systolic blood pressure 71. A recheck remained in the 70s. Given her history of bleeding symptoms will give her IV fluids basic labs EKG with a troponin. Will also examine with a CT abdomen and pelvis with IV contrast to evaluate this G.I. bleeding and abdominal pain. Patients in agreement with this plan. Pain Scale: 0 - Related Data Home Medications Medication Instructions Recorded Confirmed Albuterol Sulfate [Proair Hfa] 2 puff IH Q4H PRN 09/29/17 11/11/17 Omeprazole [PriLOSEC] 40 mg PO DAILY 09/29/17 11/11/17 Oxygen 2 l NS AD 09/29/17 11/11/17 Isosorbide MONOnitrate (24 HR) 30 mg PO DAILY 11/11/17 11/11/17 [Imdur] Metoprolol [Lopressor] 12.5 mg PO BID 11/11/17 11/11/17 predniSONE [Prednisone] 2.5 mg PO DAILY 11/11/17 11/11/17 Allergies Allergy/AdvReac Type Severity Reaction Status Date / Time budesonide [From Symbicort] Allergy Shakiness Verified 11/11/17 18:06 Formoterol [From Symbicort] Allergy Shakiness Verified 11/11/17 18:06 simvastatin Allergy Cramping Verified 11/11/17 18:06 of the Muscles sulfamethoxazole Allergy Nausea Verified 11/11/17 18:06 [From Bactrim] trimethoprim [From Bactrim] Allergy Nausea Verified 11/11/17 18:06 All systems ED: reviewed and negative except as stated. Review of Systems: As Per HPI Constitutional: Reports: weakness. Denies: fever, chills ENT ED: Denies: congestion Cardiovascular: Denies: chest pain Respiratory: Denies: cough Gastrointestinal: Reports: abdominal pain, hematochezia. Denies: nausea, vomiting, hematemesis Genitourinary: Denies: urgency, dysuria Musculoskeletal: Denies: back pain, neck pain Integumentary: Denies: rash, abrasion Neurological: Reports: weakness. Denies: headache, numbness Endocrine: Reports: fatigue Past Medical History - Past Medical History Attestation: Yes The following information was validated with the patient. Source: patient Medical history: Reports: COPD, GERD, hyperlipidemia, other Surgical history: Reports: cholecystectomy, pacemaker Psychiatric history: Reports: no psych history - Social History Smoking Status: Former smoker Smokeless Tobacco Status: No Alcohol use: Reports: none Drug use: Reports: none Physical Exam - General Limitations: no limitations General appearance: alert, in no apparent distress - Head Head exam: atraumatic, normocephalic - Eye Eye exam: Present: normal appearance, PERRL, EOMI - ENT ENT exam: normal exam, normal oropharynx, mucous membranes moist - Neck Neck exam: Present: normal inspection, full ROM, trachea midline - Chest Chest inspection: Present: normal inspection, symmetric chest wall rise - Respiratory Respiratory exam: Present: normal lung sounds bilaterally - Cardiovascular Cardiovascular exam: Present: regular rate, normal rhythm, normal heart sounds. Absent: systolic murmur, diastolic murmur - Abdominal Exam Abdominal exam: Present: soft, tenderness. Absent: distention, guarding, rebound, rigidity Abdominal tenderness: Present: LLQ - Rectal Exam Digital Commentator present during exam: Yes Rectal exam: Present: normal inspection, normal rectal tone, heme (-) stool, hemorrhoids (external, no thrombosis). Absent: black stool, bloody stool - Extremities Exam Extremities exam: Present: normal inspection, full ROM. Absent: tenderness, pedal edema - Neurological Exam Neurological exam: Present: alert, oriented X3, CN II-XII intact - Expanded Neurological Exam Patient oriented to: Present: person, place, time Speech: Present: fluid speech Cranial nerves: EOM function (II, III, IV, ): Normal, facial sensation (V): Normal, facial palsy (VII): Normal, gag reflex (IX): Normal, spinal accessory function (XI): Normal, tongue deviation (XII): Normal Motor strength - LUE: 5/5 Motor strength - RUE: 5/5 Motor strength - LLE: 5/5 Motor strength - RLE: 5/5 Upper motor neuron exam: scottie neglect: Absent bilaterally, pronator drift: Absent bilaterally Sensory exam upper extremity: light touch: Normal Sensory exam lower extremity: light touch: Normal - Psychiatric Psychiatric exam: Present: normal affect, normal mood - Skin Skin exam: Present: warm, dry, intact, normal color. 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 States today she was working with therapy was found to be hypotensive. Blood pressure was systolic 70s here on arrival. She has been reporting some weakness and lightheadedness. Denies syncope. Denies any chest pain or shortness of breath. Was recently evaluated and her certified legal secretary specialist states they may require heart catheterization but will hold off until her thrombocytopenia is resolved. Patient was recently diagnosed with diverticulitis and treated with Cipro and Flagyl. She continues to have some tenderness on examination is in the left lower quadrant. Heart is regular rate and rhythm. Neurologic exam is otherwise unremarkable. At this time will give her some fluids and check some basic labs. Patient denies history of blood transfusion but has noticed some blood in her stool specially when she wipes. Denies any black tarry stools. Will perform a rectal examination. She will also get a CT of the abdomen and pelvis given her abdominal tenderness. - Reevaluation(s) Reevaluation #1: Patient does not appear septic. Review for lab shows a chronic thrombocytopenia that is slightly improved. She is anemic does not regard blood transfusion at this time. She does not have a leukocytosis. Urinalysis is still pending. Patient has a history of urinary incontinence and wears a pad. She denies any urinary complaints at this time. CT of the abdomen and pelvis reveals diverticulosis with possible concern of diverticulitis that stranding. Will continue treatment of Cipro and Flagyl for this. Her blood pressure has improved with normal saline fluid hydration. Of note given her recent reported myocardial infarction she was placed on Aj and took her 1st does today. There could be a likely component this was drug-related however due to some of her symptoms she would benefit observation and admission. Patient family are in agreement with this plan. Impression is abdominal pain, hypotension, diverticulitis. - Consultations Consultation #1: Spoke with on-call hospitalist mert [place] to admit for hypotension possibly medication side effect, thrombocytopenia, abdominal pain, diverticulitis. No further orders at this time Vital Signs Temperature 98.1 F 11/11/17 15:25 Pulse Rate 66 11/11/17 15:25 Respiratory Rate 16 11/11/17 15:25 Blood Pressure 71/45 11/11/17 15:25 O2 Sat by Pulse Oximetry 97 11/11/17 15:25 Temperature 98.1 F 11/11/17 20:05 Pulse Rate 71 11/11/17 20:05 Respiratory Rate 18 11/11/17 20:05 Blood Pressure 109/74 11/11/17 20:05 O2 Sat by Pulse Oximetry 100 11/11/17 20:05 Oxygen Delivery Oxygen Delivery Room Air Medical Decision Making - MDM Narrative Medical decision making narrative: Patient was discussed with my attending physician who agrees with ED management and final disposition. They independently evaluated the patient. Please refer to their attestation to this encounter for additional information. This note was generated by [employer] voice recognition software and as a result grammatical or spelling errors may occur using this program. - Medical Records Medical records reviewed: Yes I reviewed the patient's medical records. - Lab Data Lab results reviewed: Yes I reviewed the patient's lab results. Result diagrams: 11/11/17 15:54 11/11/17 15:54 Lab Results 11/11/17 11/11/17 11/11/17 Range/Units 15:54 15:54 15:54 WBC 8.7 (4.3-11.1) K/mcL RBC 3.79 L (3.82-4.97) M/mcL Hgb 11.4 L (11.5-15.4) g/dL Hct 34.6 L (35.3-44.9) % MCV 91.3 (83.0-100.0) fL MCH 30.1 (28.0-33.3) pg MCHC 32.9 (31.6-35.5) g/dL RDW 13.2 (11.5-14.5) % Plt Count 82 L (140-400) K/mcL MPV 10.1 (9.4-12.4) fL Immature Gran % 0.9 (0-4) % Seg Neutrophils % 61.0 % Lymphocytes % 31.2 % Monocytes % 6.1 % Eosinophils % 0.5 % Basophils % 0.3 % Neutrophils # 5.3 (1.6-8.9) K/mcL Lymphocytes # 2.7 (0.6-4.6) K/mcL Monocytes # 0.5 (0.0-1.3) K/mcL Eosinophils # 0.0 (0.0-0.6) K/mcL Basophils # 0.0 (0.0-0.2) K/mcL Nucleated RBCs/100 WBC 0.2 H (0) /100 WBC Immature Plt Fraction 1.6 (1.1-6.1) % PT 11.2 (9.4-12.1) Seconds INR 1.0 APTT 25.5 L (26.0-36.0) Seconds Sodium 141 (136-145) mEq/L Potassium 4.3 (3.5-5.1) mEq/L Chloride 110 H (98-107) mEq/L Carbon Dioxide 23 (23-29) mEq/L BUN 23 (8-23) mg/dL Creatinine 1.00 (0.60-1.20) mg/dL Est GFR ( Amer) > 60 (> 60) Est GFR (Non-Af Amer) 53 L (> 60) BUN/Creatinine Ratio 23 (6-26) Glucose 112 H (70-105) mg/dL Calculated Osmolality 296 (280-300) Calcium 8.9 (8.6-10.3) mg/dL Total Bilirubin 0.7 (0.3-1.0) mg/dL AST 17 (13-39) Units/L ALT 12 (7-52) Units/L Alkaline Phosphatase 34 (34-104) Units/L Troponin I < 0.03 (< 0.04) ng/mL Serum Total Protein 5.7 L (6.4-8.9) g/dL Albumin 3.1 L (3.5-5.7) g/dL Globulin 2.6 (2.4-3.5) g/dL Albumin/Globulin Ratio 1.2 (1.1-2.2) Blood Type Antibody Screen Antibody Identification 11/11/17 Range/Units 16:04 WBC (4.3-11.1) K/mcL RBC (3.82-4.97) M/mcL Hgb (11.5-15.4) g/dL Hct (35.3-44.9) % MCV (83.0-100.0) fL MCH (28.0-33.3) pg MCHC (31.6-35.5) g/dL RDW (11.5-14.5) % Plt Count (140-400) K/mcL MPV (9.4-12.4) fL Immature Gran % (0-4) % Seg Neutrophils % % Lymphocytes % % Monocytes % % Eosinophils % % Basophils % % Neutrophils # (1.6-8.9) K/mcL Lymphocytes # (0.6-4.6) K/mcL Monocytes # (0.0-1.3) K/mcL Eosinophils # (0.0-0.6) K/mcL Basophils # (0.0-0.2) K/mcL Nucleated RBCs/100 WBC (0) /100 WBC Immature Plt Fraction (1.1-6.1) % PT (9.4-12.1) Seconds INR APTT (26.0-36.0) Seconds Sodium (136-145) mEq/L Potassium (3.5-5.1) mEq/L Chloride (98-107) mEq/L Carbon Dioxide (23-29) mEq/L BUN (8-23) mg/dL Creatinine (0.60-1.20) mg/dL Est GFR ( Amer) (> 60) Est GFR (Non-Af Amer) (> 60) BUN/Creatinine Ratio (6-26) Glucose (70-105) mg/dL Calculated Osmolality (280-300) Calcium (8.6-10.3) mg/dL Total Bilirubin (0.3-1.0) mg/dL AST (13-39) Units/L ALT (7-52) Units/L Alkaline Phosphatase (34-104) Units/L Troponin I (< 0.04) ng/mL Serum Total Protein (6.4-8.9) g/dL Albumin (3.5-5.7) g/dL Globulin (2.4-3.5) g/dL Albumin/Globulin Ratio (1.1-2.2) Blood Type O POSITIVE Antibody Screen POSITIVE Antibody Identification Anti-M - Radiology Data Radiology results reviewed: Yes I reviewed the patient's radiology results. Chest X-Ray 11/11/17 15:41 IMPRESSION: No acute cardiopulmonary disease. D/ / Jayy Angel MD / Jayy Angel MD Interpreting Provider: Jayy Angel MD Abdomen/Pelvis CT 11/11/17 15:45 IMPRESSION: 1. Colonic diverticulosis again noted. Some infiltration of fat is seen inferiorly in the pelvis which could represent diverticulitis. This could represent residual scarring from diverticulitis last month as there was fluid in this region on the previous CT done September 29, 2017. No evidence for a diverticular abscess. 2. No obstructive uropathy. Bilateral renal pelves again noted. 3. The appendix is not visualized but no secondary signs of appendicitis. 4. Status post cholecystectomy. D/ / 11/11/2017 17:45:14 Myles Miranda MD / gokul Interpreting Provider: Myles Miranda MD - EKG Data EKG #1 EKG attestation: Yes I reviewed and interpreted this EKG. EKG results narrative: EKG performed 1548 electrical paced rhythm 60 bpm, QRS 158, no Sgarbossa criteria. Compared to prior EKG performed 09/29/2017 shows similar consistent findings. No acute ischemic changes.
[2017-11-11] MEDS ORDERED: 0.9 % Sodium Chloride 1,000 ML IVC ONE (16:34)
[2017-11-11 16:37] LABS: Alanine Aminotransferase 12 Units/L (7-52); Albumin 3.1 g/dL (3.5-5.7); Albumin/Globulin Ratio 1.2 (1.1-2.2); Alkaline Phosphatase 34 Units/L (34-104); Aspartate Amino Transferase 17 Units/L (13-39); BUN/Creatinine Ratio 23 (6-26); Bilirubin,Total 0.7 mg/dL (0.3-1.0); Blood Urea Nitrogen 23 mg/dL (8-23); Calcium 8.9 mg/dL (8.6-10.3); Carbon Dioxide 23 mEq/L (23-29); Chloride 110 mEq/L (98-107); Globulin 2.6 g/dL (2.4-3.5); Glucose 112 mg/dL (70-105); Osmolality,Calculated 296 (280-300); Potassium 4.3 mEq/L (3.5-5.1); Sodium 141 mEq/L (136-145); Total Protein 5.7 g/dL (6.4-8.9); eGFR For African Americans > 60 (> 60); eGFR For Non-African Americans 53 (> 60)
[2017-11-11 16:38] LABS: Troponin I < 0.03 ng/mL (< 0.04)
[2017-11-11 16:39] LABS: Prothrombin Time 11.2 Seconds (9.4-12.1)
[2017-11-11 16:40] LABS: Eosinophils % 0.5 %; Red Cell Distribution Width 13.2 % (11.5-14.5)
[2017-11-11 16:41] LABS: Activated Partial Thrombo Time 25.5 Seconds (26.0-36.0)
[2017-11-11 16:42] LABS: Basophils % 0.3 %; Hematocrit 34.6 % (35.3-44.9); Hemoglobin 11.4 g/dL (11.5-15.4); Immature Granulocytes % 0.9 % (0-4); Immature Platelets 1.6 % (1.1-6.1); Lymphocytes # 2.7 K/mcL (0.6-4.6); Lymphocytes % 31.2 %; Mean Corpuscular HGB Conc 32.9 g/dL (31.6-35.5); Mean Corpuscular Hemoglobin 30.1 pg (28.0-33.3); Mean Corpuscular Volume 91.3 fL (83.0-100.0); Mean Platelet Volume 10.1 fL (9.4-12.4); Monocytes # 0.5 K/mcL (0.0-1.3); Monocytes % 6.1 %; Neutrophils # 5.3 K/mcL (1.6-8.9); Nucleated Red Blood Cells 0.2 /100 WBC (0); Red Blood Count 3.79 M/mcL (3.82-4.97)
[2017-11-11 16:51] LABS: Platelet Count 82 K/mcL (140-400)
[2017-11-11] MEDS ORDERED: MetroNIDAZOLE 500 MG/100 ML 500 MG/100 ML BAG IVPB ONE (17:44)
--- NOTE | 2017-11-11 19:00 | Emergency Department Note ---
Disposition Clinical Impression: Thrombocytopenia, Diverticulitis Hypotension Qualifiers: Hypotension type: unspecified hypotension type Qualified Code(s): I95.9 - Hypotension, unspecified Abdominal pain Qualifiers: Abdominal location: unspecified location Qualified Code(s): R10.9 - Unspecified abdominal pain Disposition: Admitted As Inpatient Condition: Good General Adult HPI - General Chief complaint: ED Dizziness Stated complaint: "hypotension" Time Seen by Provider: 11/11/17 15:31 Source: patient, family (daughter, RN) Limitations: no limitations - History of Present Illness Pain Scale: 0 - Related Data Home Medications Medication Instructions Recorded Confirmed Albuterol Sulfate [Proair Hfa] 2 puff IH Q4H PRN 09/29/17 11/11/17 Omeprazole [PriLOSEC] 40 mg PO DAILY 09/29/17 11/11/17 Oxygen 2 l NS AD 09/29/17 11/11/17 Metoprolol [Lopressor] 12.5 mg PO BID 11/11/17 11/11/17 predniSONE [Prednisone] 2.5 mg PO DAILY 11/11/17 11/11/17 Previous Rx's Medication Instructions Recorded Ciprofloxacin HCl [Cipro] 500 mg PO BID #4 tablet 11/12/17 Allergies Allergy/AdvReac Type Severity Reaction Status Date / Time budesonide [From Symbicort] Allergy Shakiness Verified 11/11/17 18:06 Formoterol [From Symbicort] Allergy Shakiness Verified 11/11/17 18:06 simvastatin Allergy Cramping Verified 11/11/17 18:06 of the Muscles sulfamethoxazole Allergy Nausea Verified 11/11/17 18:06 [From Bactrim] trimethoprim [From Bactrim] Allergy Nausea Verified 11/11/17 18:06 All systems ED: reviewed and negative except as stated. Review of Systems: As Per HPI Constitutional: Reports: weakness. Denies: fever, chills ENT ED: Denies: congestion Cardiovascular: Denies: chest pain Respiratory: Denies: cough Gastrointestinal: Reports: abdominal pain, hematochezia. Denies: nausea, vomiting, hematemesis Genitourinary: Denies: urgency, dysuria Musculoskeletal: Denies: back pain, neck pain Integumentary: Denies: rash, abrasion Neurological: Reports: weakness. Denies: headache, numbness Endocrine: Reports: fatigue Past Medical History - Past Medical History Medical history: Reports: COPD, GERD, hyperlipidemia, other Surgical history: Reports: cholecystectomy, pacemaker Psychiatric history: Reports: no psych history - Social History Smoking Status: Former smoker Smokeless Tobacco Status: No Alcohol use: Reports: none Drug use: Reports: none Physical Exam - General Limitations: no limitations General appearance: alert, in no apparent distress Course Vital Signs Temperature 98.1 F 11/11/17 15:25 Pulse Rate 66 11/11/17 15:25 Respiratory Rate 16 11/11/17 15:25 Blood Pressure 71/45 11/11/17 15:25 O2 Sat by Pulse Oximetry 97 11/11/17 15:25 Temperature 98.2 F 11/12/17 11:07 Pulse Rate 62 11/12/17 11:07 Respiratory Rate 18 11/12/17 11:07 Blood Pressure 97/53 11/12/17 11:07 O2 Sat by Pulse Oximetry 95 11/12/17 11:07 Oxygen Delivery Oxygen Delivery Room Air Medical Decision Making - Lab Data Result diagrams: 11/12/17 04:07 11/12/17 04:07 Lab Results 11/11/17 11/11/17 11/11/17 Range/Units 15:54 15:54 15:54 WBC 8.7 (4.3-11.1) K/mcL RBC 3.79 L (3.82-4.97) M/mcL Hgb 11.4 L (11.5-15.4) g/dL Hct 34.6 L (35.3-44.9) % MCV 91.3 (83.0-100.0) fL MCH 30.1 (28.0-33.3) pg MCHC 32.9 (31.6-35.5) g/dL RDW 13.2 (11.5-14.5) % Plt Count 82 L (140-400) K/mcL MPV 10.1 (9.4-12.4) fL Immature Gran % 0.9 (0-4) % Seg Neutrophils % 61.0 % Lymphocytes % 31.2 % Monocytes % 6.1 % Eosinophils % 0.5 % Basophils % 0.3 % Neutrophils # 5.3 (1.6-8.9) K/mcL Lymphocytes # 2.7 (0.6-4.6) K/mcL Monocytes # 0.5 (0.0-1.3) K/mcL Eosinophils # 0.0 (0.0-0.6) K/mcL Basophils # 0.0 (0.0-0.2) K/mcL Nucleated RBCs/100 WBC 0.2 H (0) /100 WBC Immature Plt Fraction 1.6 (1.1-6.1) % PT 11.2 (9.4-12.1) Seconds INR 1.0 APTT 25.5 L (26.0-36.0) Seconds Sodium 141 (136-145) mEq/L Potassium 4.3 (3.5-5.1) mEq/L Chloride 110 H (98-107) mEq/L Carbon Dioxide 23 (23-29) mEq/L BUN 23 (8-23) mg/dL Creatinine 1.00 (0.60-1.20) mg/dL Est GFR ( Amer) > 60 (> 60) Est GFR (Non-Af Amer) 53 L (> 60) BUN/Creatinine Ratio 23 (6-26) Glucose 112 H (70-105) mg/dL Calculated Osmolality 296 (280-300) Calcium 8.9 (8.6-10.3) mg/dL Total Bilirubin 0.7 (0.3-1.0) mg/dL AST 17 (13-39) Units/L ALT 12 (7-52) Units/L Alkaline Phosphatase 34 (34-104) Units/L Troponin I < 0.03 (< 0.04) ng/mL Serum Total Protein 5.7 L (6.4-8.9) g/dL Albumin 3.1 L (3.5-5.7) g/dL Globulin 2.6 (2.4-3.5) g/dL Albumin/Globulin Ratio 1.2 (1.1-2.2) Blood Type Antibody Screen Antibody Identification 11/11/17 Range/Units 16:04 WBC (4.3-11.1) K/mcL RBC (3.82-4.97) M/mcL Hgb (11.5-15.4) g/dL Hct (35.3-44.9) % MCV (83.0-100.0) fL MCH (28.0-33.3) pg MCHC (31.6-35.5) g/dL RDW (11.5-14.5) % Plt Count (140-400) K/mcL MPV (9.4-12.4) fL Immature Gran % (0-4) % Seg Neutrophils % % Lymphocytes % % Monocytes % % Eosinophils % % Basophils % % Neutrophils # (1.6-8.9) K/mcL Lymphocytes # (0.6-4.6) K/mcL Monocytes # (0.0-1.3) K/mcL Eosinophils # (0.0-0.6) K/mcL Basophils # (0.0-0.2) K/mcL Nucleated RBCs/100 WBC (0) /100 WBC Immature Plt Fraction (1.1-6.1) % PT (9.4-12.1) Seconds INR APTT (26.0-36.0) Seconds Sodium (136-145) mEq/L Potassium (3.5-5.1) mEq/L Chloride (98-107) mEq/L Carbon Dioxide (23-29) mEq/L BUN (8-23) mg/dL Creatinine (0.60-1.20) mg/dL Est GFR ( Amer) (> 60) Est GFR (Non-Af Amer) (> 60) BUN/Creatinine Ratio (6-26) Glucose (70-105) mg/dL Calculated Osmolality (280-300) Calcium (8.6-10.3) mg/dL Total Bilirubin (0.3-1.0) mg/dL AST (13-39) Units/L ALT (7-52) Units/L Alkaline Phosphatase (34-104) Units/L Troponin I (< 0.04) ng/mL Serum Total Protein (6.4-8.9) g/dL Albumin (3.5-5.7) g/dL Globulin (2.4-3.5) g/dL Albumin/Globulin Ratio (1.1-2.2) Blood Type O POSITIVE Antibody Screen POSITIVE Antibody Identification Anti-M Attestation Statement - Attestation Attestation: I, Gilberto Stephenson, examined this patient and my medical decision-making was reviewed with the CATHOLIC PRIEST/PA/Advanced Practice Nurse/Resident Physician. I agree with the documented findings, disposition and treatment plan as described except to the extent set forth below. 77-year-old female presents emergency Department with concerns of hypotension. Patient has a history of chronic GI bleeding. Initial blood pressure was in the 70s systolic. Patient is awake and alert and interactive with the exam. She does describe significant pain to the left lower quadrant of the abdomen with palpation. She has a history of diverticulitis. She does describe having recent GI bleeding. Blood pressure improved with observation and IV fluids in the emergency department. Rectal exam performed by Dr. Small was negative for occult. Patient did have hemorrhoids present on the exam. Laboratory evaluation was largely within normal limits. CT of the abdomen did show colonic diverticulosis with mild fast stranding which could be secondary to diverticulitis versus scarring from previous infection. Because the patient has pain in the left lower quadrant as well as this low blood pressure patient was started on antibiotics in the emergency department. After the workup was completed and patient was admitted, patient then states she took Imdur this morning for the first time. Dose of the Imdur was 30 mg and could likely have been a cause of her hypotension. Patient still has abdominal pain however. She will be admitted for further observation. The high probability of a clinically significant, sudden or life threatening deterioration of the cardiovascular system(s) required my full and direct attention, intervention and personal management. The aggregate critical care time was 120 minutes. This time is in addition to time spent performing reported procedures but includes the following: x Data Review and interpretation x Patient assessment and monitoring of vital signs x Documentation x Medication orders and management
[2017-11-11] MEDS ORDERED: Acetaminophen 325 MG TABLET PO PRN (19:44)
[2017-11-11] MEDS ORDERED: Naloxone 0.4 MG/ML INJ IVP PRN (19:44)
[2017-11-11] MEDS ORDERED: *HR* OxyCODONE Immed Rel 5 MG TABLET PO PRN (19:44)
[2017-11-11] MEDS ORDERED: traMADol 50 MG TABLET PO PRN (19:44)
--- NOTE | 2017-11-11 20:29 | Internal Med History&Physical ---
Date of Encounter: 11/11/17 Time of Encounter: 20:25 Internal Medicine - H&P: HPI Chief complaint: Low blood pressure Admitted From: Home Plans for Post Hospital Care: Home History of present illness: Ms. 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 She was recently discharged from the hospital after being managed for sepsis secondary to diverticulitis. The patient has coronary artery disease with stable angina, obstructive coronary artery disease found by heart catheter done a couple of months ago, with stable angina. She visited her political anthropologist yesterday who started her on Imdur. The patient states she was in her usual state of health till this morning during therapy when her systolic blood pressure was found to be in the 70s. She denies dizziness, she denies diaphoresis, no nausea or vomiting. She reports she has chest pain on exertion at baseline and shortness of breath on exertion at baseline. This has not worsened. She denies fever or chills. She reports she does not have diarrhea, however, abdominal pain has not resolved since her treatment for diverticulitis. On presentation in the ER systolic blood pressure was 71, diastolic was 45, other vital signs were stable she promptly improved with IV fluid hydration. Other workup shows hemoglobin at baseline, platelet is better than prior values on discharge, chemistry LFT coagulation panel within normal. Echocardiogram from prior admission noted. Chest x-ray showed calcified granulomas on abdominal CT shows diverticulosis and cannot rule out persistent diverticulitis. There are no abscesses. At time of evaluation, blood pressure has improved to systolic 120 over diastolic in the 60s. The patient is asymptomatic clinically and hemodynamically stable at this time. Past Med Surg Social Fam HX - Past Medical History Medical history: COPD, GERD, hyperlipidemia, other Psychiatric history: no psych history - Past Surgical History Surgical History: cholecystectomy, pacemaker - Social History Smoking Status: Former smoker Smokeless Tobacco Status: No Alcohol use: none Drug use: none - Family History Mother Hx Family Cardiac Disorders: Yes Son Hx Family Cardiac Disorders: Yes Sister Age at : 45 Cause of : lung ca Internal Medicine - H&P: Meds Albuterol Sulfate [Proair Hfa] 2 puff IH Q4H PRN 09/29/17 [History] Omeprazole [PriLOSEC] 40 mg PO DAILY 09/29/17 [History] Oxygen 2 l NS AD 09/29/17 [History] Isosorbide MONOnitrate (24 HR) [Imdur] 30 mg PO DAILY 11/11/17 [History] Metoprolol [Lopressor] 12.5 mg PO BID 11/11/17 [History] predniSONE [Prednisone] 2.5 mg PO DAILY 11/11/17 [History] 3 Allergy/AdvReac Type Severity Reaction Status Date / Time budesonide [From Symbicort] Allergy Shakiness Verified 11/11/17 18:06 Formoterol [From Symbicort] Allergy Shakiness Verified 11/11/17 18:06 simvastatin Allergy Cramping Verified 11/11/17 18:06 of the Muscles sulfamethoxazole Allergy Nausea Verified 11/11/17 18:06 [From Bactrim] trimethoprim [From Bactrim] Allergy Nausea Verified 11/11/17 18:06 All Systems PM: A 10-system review of systems was performed and is negative for pertinent findings except as documented above in the HPI. - Constitutional Constitutional: no chills, no fever(s), no night sweats - EENT Eyes: no change in vision, no discharge, no pain, no photophobia Ears: no ear discharge, no ear pain, no tinnitus Nose, mouth and throat: no dysphagia, no nasal discharge, no neck pain, no sore throat - Cardiovascular Cardiovascular ROS IM: as per HPI - Respiratory Respiratory: as per HPI - Gastrointestinal Gastrointestinal: as per HPI - Genitourinary Genitourinary: no change in urinary stream, no dysuria, no flank pain, no hematuria - Musculoskeletal Musculoskeletal ROS IM: no numbness, no tingling - Integumentary Integumentary IM: no rash, no unusual bruising - Neurological Neurological ROS: no confusion, no convulsions, no focal weakness, no numbness, no tingling, no tremor(s) - Hematologic/Lymphatic Hematologic/Lymphatic: no easy bruising - Constitutional Vitals: Temp Pulse Resp BP Pulse Ox 98.1 F 71 18 109/74 100 11/11/17 20:05 11/11/17 20:05 11/11/17 20:05 11/11/17 20:05 11/11/17 20:05 General appearance: Present: A&O X 3, pleasant, no acute distress - Head Head exam: Present: atraumatic, normocephalic - Eye Eye exam: Present: PERRL, conjuntiva pink, sclera anicteric Pupils: Present: PERRL - Neck Neck exam general surgery: Present: supple, trachea midline. Absent: lymphadenopathy - Respiratory Respiratory exam: Present: CTAB. Absent: accessory muscle use, rales, rhonchi, wheezes - Cardiovascular Cardiovascular exam: Present: RRR, +S1, +S2. Absent: diastolic murmur, gallop, rubs, systolic murmur - GI/Abdominal GI/Abdominal exam: Present: normal bowel sounds, soft, tenderness (mild tenderness RLQ, LLQ, no guarding), no peritoneal signs. Absent: distended - Extremities Exam Extremities exam: Present: warm, radial pulses palpable and symmetrical. Absent : calf tenderness, cyanotic, pedal edema - Neurological Exam Neurological exam: Present: alert, CN II-XII intact, oriented X3, no focal deficits. Absent: pronater drift, facial droop, speech deficit - Skin Skin exam: Present: dry, intact Internal Med - H&P Results - Labs CBC & Chem 7: 11/11/17 15:54 11/11/17 15:54 - Assessment and plan (1) Chronic kidney disease, stage III (moderate) Current Visit: Yes Status: Chronic Assessment and plan: Chemistries at baseline. However nephrotoxins. Continue to monitor. (2) COPD (chronic obstructive pulmonary disease) Current Visit: Yes Status: Chronic Assessment and plan: Chest is clear to auscultation bilaterally without any increasing oxygen requirements without wheezing. Continue home medications. Qualifiers: COPD type: unspecified COPD Qualified Code(s): J44.9 - Chronic obstructive pulmonary disease, unspecified (3) Diverticulitis Current Visit: Yes Status: Acute Assessment and plan: Seen diverticulitis by symptoms and CAT scan. Continue ciprofloxacin and Flagyl IV. (4) Hypotension Current Visit: Yes Status: Acute Assessment and plan: Hypotension is possibly due to new medication, Imdur was started at 30 mg daily , patient this morning prior to symptoms. She is now asymptomatic and blood pressure is improving. IV fluid hydration and continue to monitor blood pressure. Qualifiers: Hypotension type: unspecified hypotension type Qualified Code(s): I95.9 - Hypotension, unspecified (5) Paroxysmal atrial fibrillation Current Visit: Yes Status: Chronic Assessment and plan: Heart rate is currently controlled, and paste. Continue home medications. Not on anticoagulation due to low platelet count and history of rectal bleed. (6) Thrombocytopenia Current Visit: Yes Status: Chronic Assessment and plan: Platelet count is improved from prior discharge values. Continue home dose of prednisone. (7) Coronary artery disease Current Visit: Yes Status: Chronic Assessment and plan: History of coronary artery disease with stable angina. Recent left heart catheter showed obstruction. Per patient political anthropologist does not plan on intervention due to her low platelet count and history of rectal bleed. Patient is not on aspirin due to lymphocytopenia and history of GI bleed. Continue other home medications at this time. Qualifiers: Coronary Disease-Associated Artery/Lesion type: [place] artery [place] vs. transplanted heart: [place] heart Associated angina: with stable angina Qualified Code(s): I25.118 - Atherosclerotic heart disease of [place] coronary artery with other forms of angina pectoris - Time Spent With Patient Total time spent is greater than 50% in coordination of care (as documented) at patient's floor/unit and/or counseling patient:
[2017-11-11 23:00] LABS: Bilirubin,Urine Negative (Negative); Blood,Urine Trace (Negative); Clarity,Urine Cloudy (Clear); Color,Urine Yellow (Yellow); Glucose,Urine (UA) Normal (Normal); Ketones,Urine Negative (Negative); Leukocyte Esterase,Urine Large (Negative); Nitrite,Urine Negative (Negative); Protein,Urine Negative (Neg-Trace); Specific Gravity,Urine 1.018 (1.010-1.025); Urobilinogen,Urine Normal (Normal)
[2017-11-11 23:19] LABS: Bacteria,Urine None Seen per hpf (None-Few); Squamous Epithelial Cell,Urine None Seen per lpf (None-Few); WBC,Urine 30-50 per hpf (0-3)
[2017-11-12] MEDS ORDERED: 0.9 % Sodium Chloride 1,000 ML IVC SCH (00:15)
[2017-11-12] MEDS: MetroNIDAZOLE 500 MG/100 ML 500 MG/100 ML BAG IVPB SCH ×2 (03:33→13:02)
[2017-11-12 04:36] LABS: Immature Granulocytes % 0.9 % (0-4); Red Cell Distribution Width 13.3 % (11.5-14.5)
[2017-11-12 04:38] LABS: Basophils % 0.4 %; Eosinophils # 0.1 K/mcL (0.0-0.6); Eosinophils % 1.3 %; Hematocrit 31.5 % (35.3-44.9); Hemoglobin 10.2 g/dL (11.5-15.4); Immature Platelets 1.1 % (1.1-6.1); Lymphocytes # 2.4 K/mcL (0.6-4.6); Lymphocytes % 44.7 %; Mean Corpuscular HGB Conc 32.4 g/dL (31.6-35.5); Mean Corpuscular Hemoglobin 30.3 pg (28.0-33.3); Mean Corpuscular Volume 93.5 fL (83.0-100.0); Monocytes # 0.3 K/mcL (0.0-1.3); Monocytes % 6.4 %; Neutrophils # 2.5 K/mcL (1.6-8.9); Red Blood Count 3.37 M/mcL (3.82-4.97); Segmented Neutrophils % 46.3 %
[2017-11-12 04:41] LABS: Platelet Count 70 K/mcL (140-400)
[2017-11-12 04:51] LABS: BUN/Creatinine Ratio 19 (6-26); Blood Urea Nitrogen 17 mg/dL (8-23); Calcium 8.4 mg/dL (8.6-10.3); Carbon Dioxide 26 mEq/L (23-29); Chloride 114 mEq/L (98-107); Glucose 89 mg/dL (70-105); Osmolality,Calculated 297 (280-300); Potassium 3.9 mEq/L (3.5-5.1); Sodium 143 mEq/L (136-145); eGFR For African Americans > 60 (> 60); eGFR For Non-African Americans > 60 (> 60)
[2017-11-12] MEDS ORDERED: predniSONE 5 MG TABLET PO SCH (09:00)
[2017-11-12 11:09] VITALS: BP 97/53
--- NOTE | 2017-11-12 15:35 | Discharge Summary ---
- NOTES TO OUTPATIENT PROVIDER Notes to Outpatient Provider: Monitor BP; Imdur being held; Date of Encounter: 11/12/17 Time of Encounter: 09:30 - Discharge Diagnosis (1) Paroxysmal atrial fibrillation Priority: Secondary Status: Chronic (2) COPD (chronic obstructive pulmonary disease) Priority: Secondary Status: Chronic Qualifiers: COPD type: unspecified COPD Qualified Code(s): J44.9 - Chronic obstructive pulmonary disease, unspecified (3) Chronic kidney disease, stage III (moderate) Priority: Secondary Status: Chronic (4) Thrombocytopenia Priority: Secondary Status: Chronic (5) Hypotension Priority: Primary Status: Acute Qualifiers: Hypotension type: unspecified hypotension type Qualified Code(s): I95.9 - Hypotension, unspecified (6) Coronary artery disease Priority: Secondary Status: Chronic Qualifiers: Coronary Disease-Associated Artery/Lesion type: [place] artery [place] vs. transplanted heart: [place] heart Associated angina: with stable angina Qualified Code(s): I25.118 - Atherosclerotic heart disease of [place] coronary artery with other forms of angina pectoris (7) UTI (urinary tract infection) Priority: Primary Status: Suspected Qualifiers: Urinary tract infection type: site unspecified Hematuria presence: without hematuria Qualified Code(s): N39.0 - Urinary tract infection, site not specified Hospital course: Ms. Courtney is a 77 year old female with the above medical problems, who was admitted with dizziness and weakness with low blood pressure recorded at home. Patient's blood pressure was noted to be low in the emergency room, gradually responded to IV hydration. No source of infection was found. She was recently prescribed Imdur by her adjunct phlebotomy instructor for chest pain, and she took the first dose the day prior to admission. This is thought to be the likely cause for her hypotension. Patient remained hemodynamically stable for the most part, tolerated IV hydration. She has history of GI bleed and diverticulitis, requires outpatient colonoscopy. She also follows with cardiology, who will eventually plan for outpatient left heart catheterization when her GI bleed issues are resolved. She is currently medically stable for discharge, Imdur is being held. Urinalysis was suggestive of infection, patient is being discharged on ciprofloxacin, pending final urine culture results. Discharge discussed with: patient - Time Spent with Patient Total time spent providing and/or coordinating discharge services: Greater than 30 minutes (40 min) - Discharge Medications Prescriptions: Ciprofloxacin HCl [Cipro] 500 mg PO BID #4 tablet Home Medications: Albuterol Sulfate [Proair Hfa] 2 puff IH Q4H PRN 09/29/17 [History] Omeprazole [PriLOSEC] 40 mg PO DAILY 09/29/17 [History] Oxygen 2 l NS AD 09/29/17 [History] Metoprolol [Lopressor] 12.5 mg PO BID 11/11/17 [History] predniSONE [Prednisone] 2.5 mg PO DAILY 11/11/17 [History] Ciprofloxacin HCl [Cipro] 500 mg PO BID #4 tablet 11/12/17 [Rx] Allergies/Adverse Reactions: 3 Allergy/AdvReac Type Severity Reaction Status Date / Time budesonide [From Symbicort] Allergy Shakiness Verified 11/11/17 18:06 Formoterol [From Symbicort] Allergy Shakiness Verified 11/11/17 18:06 simvastatin Allergy Cramping Verified 11/11/17 18:06 of the Muscles sulfamethoxazole Allergy Nausea Verified 11/11/17 18:06 [From Bactrim] trimethoprim [From Bactrim] Allergy Nausea Verified 11/11/17 18:06 Date of admission: 11/11/17 19:10 Primary care physician: Tram Garcia MD Discharging clinician: Juana Krishna Anticipated date of discharge: 11/12/17 - Constitutional Vitals: Temp Pulse Resp BP Pulse Ox 98.2 F 62 18 97/53 95 11/12/17 11:07 11/12/17 11:07 11/12/17 11:07 11/12/17 11:07 11/12/17 11:07 General appearance: Present: A&O X 3, answers questions appropriately - Cardiovascular Cardiovascular exam: Present: RRR, +S1, +S2. Absent: diastolic murmur, gallop, rubs, systolic murmur - Patient Status Disposition: Home, Self-Care Condition: Good Functional capacity at discharge: independent ambulation Overall status at discharge: patient is progressing back to baseline - Discharge Instructions Instructions: Ciprofloxacin (By mouth), Chest Pain (DC), Heart Healthy Diet (DC ) Follow Up With: Gilberto King MD [Partnered Physician] - 11/26/17 2:00 pm (this appointment was made by someone else) Tram Garcia MD [Primary Care Provider] - 11/19/17 12:00 pm - Diet and Activity Activity: resume usual activities as tolerated Diet: low fat, low cholesterol, low salt diet - VTE Documentation of Mechanical Device: Intermittent pneumatic compression device
--- NOTE | 2017-11-13 15:50 | Electrocardiograph Report ---
[address] [address] Test Date: 2017-11-11 Pat Name: Avis Courtney Department: [id number] Room: 2N12 Gender: F Aquatics Specialist: Dory : [id number] Requested By: Phil Small Order Number: [id number] Reading MD: Mitch Schneider Measurements Intervals [place] Rate: 60 P: 180 NC: 196 QRS: -68 QRSD: 158 T: 60 QT: 453 QTc: 453 Interpretive Statements ELECTRONIC ATRIAL PACEMAKER ELECTRONIC VENTRICULAR PACEMAKER ABNORMAL RHYTHM ECG Electronically Signed On 11-13-2017 15:48:25 EDT by Mitch Schneider
== END 2017-11-12 16:17 | disposition home or self-care (01) ==
LOC: EMEROO 15:14 → INTOOBSV 19:10 → 2NNU 19:10
PROVIDERS: ADMIT Internal Medicine; ATTEND Nurse Practitioner